=== PATIENT | male | born 1940 | race Caucasian/White ===

== ENCOUNTER 2017-10-16 20:34 | Emergency (ER) | payer MEDICARE ==
[~2017-10-16] VITALS: Ht 162.6 cm; Wt 62.6 kg
[2017-10-16] MEDS ORDERED: RANI150C4 PO (20:56)
[2017-10-16] MEDS ORDERED: ATOR20TA PO (20:56)
[2017-10-16] MEDS ORDERED: ASPI-605 PO (20:56)
[2017-10-16] MEDS ORDERED: DEXAMETHASONE SOD PHOSPHATE 4 MG INJ IM ONE (21:15)
[2017-10-16] MEDS ORDERED: PENICILLIN G BENZATHINE 2.4 MMU/4 ML DISP.SYRIN IM ONE ×2 (21:15→21:21)
[2017-10-16] MEDS ORDERED: DEXAMETHASONE SOD PHOSPHATE 10 MG INJ ONE (21:21)
[2017-10-16 21:26] VITALS: BP 133/81
--- NOTE | 2017-10-16 21:26 | NUR ---
Patient discharged to home in stable conditon. Written and verbal after care instructions given. Patient verbalizes understanding of instructions. Ambulated from ER with stable gait. All belongings with patient.
== END 2017-10-16 21:27 | disposition home or self-care (01) ==
LOC: ER 20:34
DX: J02.9 Acute pharyngitis, unspecified (principal); K21.9 Gastro-esophageal reflux disease without esophagitis; Z79.82 Long term (current) use of aspirin; Z79.899 Other long term (current) drug therapy
CPT/HCPCS: 96372 ×2; 99284; A4663; J1100